=== PATIENT | female | born 2000 | race Two or more races ===

== ENCOUNTER 2019-09-03 20:11 | Emergency (ER) | payer MEDICAID ==
[~2019-09-03] VITALS: Ht 152.4 cm; Wt 67.1 kg
[2019-09-03 21:26] LABS: Urine Bacteria NONE SEEN /hpf (None Seen); Urine Blood Negative /uL (Negative); Urine Specific Gravity 1.016 (1.001-1.035); Urine WBC 9 /hpf (0 - 5)
[2019-09-03 23:56] LABS: Eosinophils # (auto) 0 uL; Lymphocytes # (auto) 1.5 uL; Mean Corpuscular Hgb Conc. 32.9 g/dL (32.0-36.0); Monocytes # (auto) 0.7 uL; Nucleated Red Blood Cells % 0.2 %; White Blood Cell 5.3 10^3/uL (4.4-10.8)
[2019-09-03 23:58] LABS: Basophils # (auto) 0.1 uL; Basophils % (auto) 2.3 % (0.0-2.0); Eosinophils % (auto) 0.5 % (0.0-7.0); Hematocrit 37.8 % (36.0-46.0); Hemoglobin 12.5 g/dL (12.2-16.2); Lymphocytes % (auto) 28.4 % (10.0-50.0); Mean Corpuscular Hemoglobin 24.6 pg (28.0-32.0); Mean Corpuscular Volume 74.8 fL (80.0-100.0); Monocytes % (auto) 13.1 % (0.0-12.0); Neutrophils # (auto) 2.9 uL; Neutrophils % (auto) 55.7 % (37.0-80.0); Platelet Count (auto) 192 10^3/uL (140-450); Red Blood Cells 5.06 10^6/uL (4.0-5.20); Red Cell Distribution Width 16.2 % (11.8-14.3)
[2019-09-04] MEDS ORDERED: SODIUM CHLORIDE 0.9% 1,000 ML IV ONE
[2019-09-04] MEDS ORDERED: ONDANSETRON HCL 4 MG/2 ML VIAL IV ONE
[2019-09-04] MEDS ORDERED: MORPHINE SULFATE 4 MG/ML SYR/VIAL IV ONE
[2019-09-04 00:15] LABS: Albumin 3.5 g/dL (3.4-5.0); BUN/Creatinine Ratio 10.3; Calcium 8.1 mg/dL (8.5-10.1); Magnesium 2.1 mg/dL (1.6-2.6); Potassium 3.3 mmol/L (3.5-5.1)
[2019-09-04 00:17] LABS: INR 1.02 (0.9-1.15)
[2019-09-04 00:18] LABS: Bilirubin, Total 0.3 mg/dL (0.2-1.0); Total Protein 8.6 g/dL (6.4-8.2)
[2019-09-04] MEDS ORDERED: IOHEXOL 300 MG/ML 100ML BOTTLE IJ ONE (01:43)
[2019-09-04 04:00] VITALS: BP 118/62
== END 2019-09-04 04:45 | disposition home or self-care (01) ==
LOC: ER 20:13
DX: N39.0 Urinary tract infection, site not specified (principal); R11.2 Nausea with vomiting, unspecified; F17.210 Nicotine dependence, cigarettes, uncomplicated
CPT/HCPCS: 36415; 74177; 80053; 81001; 81025; 82150; 83690; 83735; 85025; 85610; 85730; 96361; 96374; 96375; 99284; J2270; J2405; J7030; Q9967

== ENCOUNTER 2020-03-08 22:00 | Emergency (ER) | payer MEDICAID ==
[~2020-03-08] VITALS: Ht 144.8 cm; Wt 65.8 kg
[2020-03-08] MEDS ORDERED: HYDROcodone-ACET 5/325MG TAB PO ONE (23:15)
[2020-03-08 23:31] VITALS: BP 132/82
[2020-03-09] MEDS ORDERED: CLINDAMYCIN HCL 150 MG CAP PO ONE (00:15)
== END 2020-03-09 01:02 | disposition home or self-care (01) ==
LOC: ER 22:00
DX: K05.20 Aggressive periodontitis, unspecified (principal); F17.210 Nicotine dependence, cigarettes, uncomplicated
CPT/HCPCS: 70486

== ENCOUNTER 2020-04-02 05:39 | Emergency (ER) | payer MEDICAID ==
[~2020-04-02] VITALS: Ht 152.4 cm; Wt 65.8 kg
[2020-04-02] MEDS ORDERED: ACETAMINOPHEN/CODEINE#3 (300/30mg) TAB PO ONE (07:00)
[2020-04-02] MEDS ORDERED: IBUPROFEN 800 MG TAB PO ONE (07:00)
[2020-04-02 09:30] VITALS: BP 115/79
== END 2020-04-02 07:50 | disposition home or self-care (01) ==
LOC: ER 05:39
DX: K02.9 Dental caries, unspecified (principal); F17.210 Nicotine dependence, cigarettes, uncomplicated

== ENCOUNTER 2020-04-03 00:48 | Emergency (ER) | payer MEDICAID ==
[~2020-04-03] VITALS: Ht 152.4 cm; Wt 63.5 kg
[2020-04-03 04:19] VITALS: BP 144/94
[2020-04-03] MEDS ORDERED: cefTRIAXone SOD 1,000 MG VL IM ONE (04:30)
[2020-04-03] MEDS ORDERED: KETOROLAC TROMETH 60MG/2ML VIAL IM ONE (04:30)
== END 2020-04-03 05:27 | disposition home or self-care (01) ==
LOC: ER 00:48
DX: K04.7 Periapical abscess without sinus (principal)
CPT/HCPCS: 96372; 99284; J0696; J1885

== ENCOUNTER 2020-08-05 14:52 | Emergency (ER) | payer MEDICAID ==
[~2020-08-05] VITALS: Ht 152.4 cm; Wt 68.0 kg
[2020-08-05 20:17] VITALS: BP 140/86
== END 2020-08-05 20:22 | disposition home or self-care (01) ==
LOC: ER 14:54
DX: S91.201A Unspecified open wound of right great toe with damage to nail, initial encounter (principal); W22.8XXA Striking against or struck by other objects, initial encounter; Y93.89 Activity, other specified; Y92.89 Other specified places as the place of occurrence of the external cause; Y99.8 Other external cause status
CPT/HCPCS: 73630

== ENCOUNTER 2022-03-17 15:06 | Emergency (ER) | payer MEDICAID ==
[~2022-03-17] VITALS: Ht 154.9 cm; Wt 59.0 kg
[2022-03-17 15:06] VITALS: BP 145/85
[2022-03-17] MEDS ORDERED: AMOX250C3 PO (17:51)
== END 2022-03-17 18:17 | disposition left against medical advice (07) ==
LOC: ER 15:06
DX: K08.89 Other specified disorders of teeth and supporting structures (principal); F17.210 Nicotine dependence, cigarettes, uncomplicated

== ENCOUNTER 2022-04-28 13:39 | Emergency (ER) | payer MEDICAID ==
[~2022-04-28] VITALS: Ht 160 cm; Wt 59.0 kg
[~2022-04-28 13:39] MED LIST: AMOX250C3 PO
[2022-04-28 15:59] VITALS: BP 149/75
== END 2022-04-28 17:52 | disposition home or self-care (01) ==
LOC: ER 13:39
DX: S83.91XA Sprain of unspecified site of right knee, initial encounter (principal); F17.210 Nicotine dependence, cigarettes, uncomplicated; Z79.2 Long term (current) use of antibiotics; Y04.2XXA Assault by strike against or bumped into by another person, initial encounter; Y93.89 Activity, other specified; Y92.89 Other specified places as the place of occurrence of the external cause; Y99.8 Other external cause status
CPT/HCPCS: 29505; 73562

== ENCOUNTER 2022-08-14 07:47 | Inpatient (IN) | payer MEDICAID ==
[~2022-08-14] VITALS: Ht 152.4 cm; Wt 66.8 kg
[2022-08-14] MEDS ORDERED: SODIUM CHLORIDE 0.9% 500 ML IV ONE (08:15)
[2022-08-14 08:24] LABS: Urine Bacteria NONE SEEN /hpf (None Seen); Urine Blood 3+ /uL (Negative); Urine WBC 405 /hpf (0 - 5); Urine WBC Clumps PRESENT /hpf (None Seen)
[2022-08-14 08:38] LABS: Eosinophils # (auto) 0 10 ^3/uL (0-0.8); Mean Corpuscular Hemoglobin 25.1 pg (28.0-32.0); Nucleated Red Blood Cells % 0.1 %
[2022-08-14 08:40] LABS: Basophils # (auto) 0 10 ^3/uL (0-0.2); Basophils % (auto) 0.4 % (0.0-2.0); Eosinophils % (auto) 0.6 % (0.0-7.0); Hematocrit 40.5 % (36.0-46.0); Hemoglobin 13.4 g/dL (12.2-16.2); Lymphocytes # (auto) 0.6 10 ^3/uL (0.4-5.4); Lymphocytes % (auto) 10.4 % (10.0-50.0); Mean Corpuscular Hgb Conc. 33.1 g/dL (32.0-36.0); Mean Corpuscular Volume 75.7 fL (80.0-100.0); Monocytes # (auto) 0.5 10 ^3/uL (0-1.3); Monocytes % (auto) 8.5 % (0.0-12.0); Neutrophils # (auto) 4.9 10 ^3/uL (1.6-8.6); Neutrophils % (auto) 80.1 % (37.0-80.0); Red Blood Cells 5.36 10^6/uL (4.0-5.20); Red Cell Distribution Width 15.7 % (11.8-14.3); White Blood Cell 6.1 10^3/uL (4.4-10.8)
[2022-08-14] MEDS ORDERED: ACETAMINOPHEN 500 MG TAB PO ONE (08:45)
[2022-08-14 08:57] LABS: Albumin 4.1 g/dL (3.4-5.0); Calcium 9.1 mg/dL (8.5-10.1); Potassium 3.5 mmol/L (3.5-5.1)
[2022-08-14 09:00] LABS: BUN/Creatinine Ratio 4.8; Bilirubin, Total 0.4 mg/dL (0.2-1.0); Total Protein 9.3 g/dL (6.4-8.2)
[2022-08-14] MEDS ORDERED: cefTRIAXone 1GM/50ML D5W 50 ML IV ONE ×2 (09:53→10:00)
[2022-08-14] MEDS ORDERED: LEVO-28 PO (11:16)
[2022-08-14] MEDS ORDERED: CEPH-510 PO (11:16)
[2022-08-14] MEDS ORDERED: AZITHROMYCIN 500MG/ 250ML 250 ML IV ONE (11:30)
[2022-08-14] MEDS ORDERED: ONDANSETRON HCL 4 MG/2 ML VIAL IV PRN (13:15)
[2022-08-14] MEDS ORDERED: ACETAMINOPHEN 325 MG TAB PO PRN (13:15)
[2022-08-14] MEDS: SODIUM CHLORIDE 0.9% 1,000 ML IV SCH ×2 (16:19→23:01)
[2022-08-14] MEDS ORDERED: KETOROLAC TROMETH 30 MG/ML 1ML VIAL IV ONE (17:00)
[2022-08-14 20:00] VITALS: BP 112/60
[2022-08-14 22:00] VITALS: BP 112/60
[2022-08-14] MEDS: KETOROLAC TROMETH 30 MG/ML 1ML VIAL IV PRN (23:15)
[2022-08-15 05:00] VITALS: BP 113/58
[2022-08-15 05:08] LABS: Basophils # (auto) 0 10 ^3/uL (0-0.2); Basophils % (auto) 0.6 % (0.0-2.0); Eosinophils # (auto) 0 10 ^3/uL (0-0.8); Lymphocytes # (auto) 1.1 10 ^3/uL (0.4-5.4); Monocytes # (auto) 0.6 10 ^3/uL (0-1.3); Neutrophils # (auto) 2.3 10 ^3/uL (1.6-8.6); Red Cell Distribution Width 15.5 % (11.8-14.3)
[2022-08-15 05:11] LABS: Eosinophils % (auto) 0.6 % (0.0-7.0); Hematocrit 33.9 % (36.0-46.0); Hemoglobin 11.4 g/dL (12.2-16.2); Mean Corpuscular Hemoglobin 25.5 pg (28.0-32.0); Mean Corpuscular Hgb Conc. 33.7 g/dL (32.0-36.0); Mean Corpuscular Volume 75.7 fL (80.0-100.0); Monocytes % (auto) 14.6 % (0.0-12.0); Neutrophils % (auto) 56.2 % (37.0-80.0); Nucleated Red Blood Cells % 0.3 %; Red Blood Cells 4.48 10^6/uL (4.0-5.20)
[2022-08-15 05:24] LABS: Albumin 2.8 g/dL (3.4-5.0); Calcium 7.5 mg/dL (8.5-10.1); Potassium 3.3 mmol/L (3.5-5.1)
[2022-08-15 05:28] LABS: BUN/Creatinine Ratio 8.5
[2022-08-15 05:29] LABS: Bilirubin, Total 0.3 mg/dL (0.2-1.0); Total Protein 6.7 g/dL (6.4-8.2)
[2022-08-15] MEDS: KETOROLAC TROMETH 30 MG/ML 1ML VIAL IV PRN ×3 (06:37→22:36)
[2022-08-15] MEDS: SODIUM CHLORIDE 0.9% 1,000 ML IV SCH (06:38)
[2022-08-15 09:23] VITALS: BP 114/64
[2022-08-15] MEDS: cefTRIAXone 1GM/50ML D5W 50 ML IV SCH (09:32)
[2022-08-15] MEDS ORDERED: POTASSIUM EFFERVESENT TAB 25 MEQ PO ONE (10:15)
[2022-08-15] MEDS ORDERED: ALBUTEROL SULF 2.5 MG/0.5ML(0.5%) NEB SOLN NEB PRN (10:45)
[2022-08-15] MEDS ORDERED: guaiFENesin-DM 100/10mg/5ml SYR PO PRN (10:45)
[2022-08-15] MEDS ORDERED: IPRATROPIUM BROM 0.5 MG/2.5ML INH SOL NEB PRN (10:45)
[2022-08-15] MEDS: ENOXAPARIN SOD 40 MG/0.4 ML SYRINGE SC SCH (11:34)
[2022-08-15] MEDS: AZITHROMYCIN 500MG/ 250ML 250 ML IV SCH (11:35)
[2022-08-15] MEDS ORDERED: OSEL75CA5 PO (12:37)
[2022-08-15 13:12] VITALS: BP 114/67
[2022-08-15 16:31] VITALS: BP 114/67
[2022-08-15 17:00] VITALS: BP 126/69
[2022-08-15 17:42] LABS: Albumin 3.5 g/dL (3.4-5.0); BUN/Creatinine Ratio 7.1; Calcium 8.1 mg/dL (8.5-10.1); Potassium 3.5 mmol/L (3.5-5.1)
[2022-08-15 17:45] LABS: Bilirubin, Total 0.2 mg/dL (0.2-1.0); Total Protein 7.7 g/dL (6.4-8.2)
[2022-08-15 22:00] VITALS: BP 110/61
[2022-08-15] MEDS: OSELTAMIVIR 75 MG CAP PO SCH (22:26)
[2022-08-16 05:00] VITALS: BP 109/49
[2022-08-16 09:00] VITALS: BP 118/69
[2022-08-16] MEDS: OSELTAMIVIR 75 MG CAP PO SCH (10:15)
[2022-08-16] MEDS: cefTRIAXone 1GM/50ML D5W 50 ML IV SCH (10:15)
[2022-08-16] MEDS: ENOXAPARIN SOD 40 MG/0.4 ML SYRINGE SC SCH (10:15)
[2022-08-16] MEDS: KETOROLAC TROMETH 30 MG/ML 1ML VIAL IV PRN (10:15)
[2022-08-16] MEDS: AZITHROMYCIN 500MG/ 250ML 250 ML IV SCH (11:21)
[2022-08-16 13:00] VITALS: BP 112/67
== END 2022-08-16 15:50 | disposition home or self-care (01) | DRG 139 ==
LOC: ER 07:47 → OVERFLOW 13:06 → EAST 18:15
PROVIDERS: ADMIT Nurse Practitioner Family; ATTEND Nurse Practitioner Acute Care
DX: J10.08 Influenza due to other identified influenza virus with other specified pneumonia (principal); E44.0 Moderate protein-calorie malnutrition; E83.51 Hypocalcemia; D50.9 Iron deficiency anemia, unspecified; D72.819 Decreased white blood cell count, unspecified; F17.290 Nicotine dependence, other tobacco product, uncomplicated; E87.6 Hypokalemia; Z20.822 Contact with and (suspected) exposure to COVID-19; J15.9 Unspecified bacterial pneumonia; Z68.28 Body mass index [BMI] 28.0-28.9, adult
CPT/HCPCS: 36415; 71045; 74018; 80053; 81001; 81025; 85025; 87426; 87804; 94640; 96361; 96365; 96367; G0378; J0696; J1885

== ENCOUNTER 2023-07-21 09:06 | Emergency (ER) | payer MEDICAID ==
[~2023-07-21] VITALS: Ht 152.4 cm; Wt 62.5 kg
[~2023-07-21 09:06] MED LIST changes: +CEPH-510 PO; +LEVO500T91 PO; +OSEL75CA5 PO
[2023-07-21 09:37] VITALS: BP 132/77; PULSE 79; RESP 18; TEMP 97.1; O2SAT 98
[2023-07-21 09:48] LABS: Urine Bacteria NONE SEEN /hpf (None Seen); Urine Blood Negative /uL (Negative); Urine Clarity Clear (Clear); Urine Color Yellow (Yellow); Urine Mucus FEW (None Seen); Urine Protein, UAD Negative (Negative); Urine Specific Gravity 1.022 (1.001-1.035); Urine Urobilinogen Normal (Negative); Urine WBC 1 /hpf (0 - 5)
[2023-07-21 09:55] LABS: Basophils # (auto) 0.1 10 ^3/uL (0-0.2); Basophils % (auto) 1.1 % (0.0-2.0); Hemoglobin 13.1 g/dL (12.2-16.2); Lymphocytes # (auto) 2.2 10 ^3/uL (0.4-5.4); Mean Corpuscular Hemoglobin 24.8 pg (28.0-32.0); Mean Corpuscular Hgb Conc. 32.6 g/dL (32.0-36.0); Monocytes # (auto) 0.4 10 ^3/uL (0-1.3); Neutrophils # (auto) 4.5 10 ^3/uL (1.6-8.6); Red Blood Cells 5.28 10^6/uL (4.0-5.20); White Blood Cell 7.5 10^3/uL (4.4-10.8)
[2023-07-21 09:56] LABS: Eosinophils # (auto) 0.2 10 ^3/uL (0-0.8); Eosinophils % (auto) 3.3 % (0.0-7.0); Hematocrit 40.1 % (36.0-46.0); Lymphocytes % (auto) 29.5 % (10.0-50.0); Monocytes % (auto) 5.5 % (0.0-12.0); Neutrophils % (auto) 60.6 % (37.0-80.0); Red Cell Distribution Width 16.7 % (11.8-14.3)
[2023-07-21 10:22] LABS: Chloride 106 mmol/L (98-107); Potassium 3.6 mmol/L (3.5-5.1); Sodium 137 mmol/L (136-145)
[2023-07-21 10:23] LABS: Anion Gap 4 (5-15); Calcium 9.4 mg/dL (8.5-10.1); Carbon Dioxide 27 mmol/L (20-30)
[2023-07-21 10:28] LABS: BUN/Creatinine Ratio 7.8 (10.0-20.0); Blood Urea Nitrogen 6 mg/dL (9-23); Glucose 111 mg/dL (74-106)
[2023-07-21] MEDS ORDERED: IBUP-1456 PO (11:30)
== END 2023-07-21 11:39 | disposition home or self-care (01) ==
LOC: ER 09:06
DX: S39.012A Strain of muscle, fascia and tendon of lower back, initial encounter (principal); K57.30 Diverticulosis of large intestine without perforation or abscess without bleeding; K59.00 Constipation, unspecified; Z98.890 Other specified postprocedural states; Z79.1 Long term (current) use of non-steroidal anti-inflammatories (NSAID); Z79.899 Other long term (current) drug therapy; X58.XXXA Exposure to other specified factors, initial encounter; Y93.89 Activity, other specified; Y92.89 Other specified places as the place of occurrence of the external cause; Y99.8 Other external cause status
CPT/HCPCS: 36415; 74176; 80048; 81001; 81025; 85025

== ENCOUNTER 2023-10-25 21:01 | Emergency (ER) | payer MEDICAID ==
[~2023-10-25] VITALS: Ht 157.5 cm; Wt 61.8 kg
[~2023-10-25 21:01] MED LIST changes: +IBUP-1456 PO
[2023-10-26 00:25] VITALS: BP 115/66; PULSE 77; RESP 17; TEMP 98; O2SAT 99
[2023-10-26] MEDS ORDERED: TETRACAINE HCL 0.5% OPTH(EYE) SOLN 4ML LEFTEYE ONE (01:30)
[2023-10-26] MEDS ORDERED: FLUORESCEIN SOD OPTH TEST STRIP LEFTEYE ONE (01:30)
[2023-10-26] MEDS ORDERED: ERY05OO OP (02:58)
== END 2023-10-26 04:34 | disposition home or self-care (01) ==
LOC: ER 21:01
DX: S05.02XA Injury of conjunctiva and corneal abrasion without foreign body, left eye, initial encounter (principal); Z79.2 Long term (current) use of antibiotics; Z79.1 Long term (current) use of non-steroidal anti-inflammatories (NSAID); Z79.899 Other long term (current) drug therapy; X58.XXXA Exposure to other specified factors, initial encounter; Y93.89 Activity, other specified; Y92.89 Other specified places as the place of occurrence of the external cause; Y99.8 Other external cause status

== ENCOUNTER 2024-03-24 23:31 | Emergency (ER) | payer MEDICAID ==
[~2024-03-24] VITALS: Ht 157.5 cm; Wt 73.0 kg
[~2024-03-24 23:31] MED LIST changes: +ERY05OO OP
[2024-03-25 00:15] VITALS: BP 118/62; PULSE 87; RESP 20; TEMP 98.5
[2024-03-25] MEDS: IBUPROFEN 800 MG TAB PO ONE (03:28)
[2024-03-25 03:31] LABS: Amphetamine Screen, Urine Neg (NEGATIVE); Barbiturate Scree,Urine Neg (NEGATIVE); Benzodiazephine Screen, Urine Neg (NEGATIVE); Cannabinoid Screen, Urine Pos (NEGATIVE); Cocaine Screen, Urine Pos (NEGATIVE); Opiate Scree,Urine Neg (NEGATIVE); Phencyclidine Screen, Urine Neg (NEGATIVE)
[2024-03-25 03:34] VITALS: O2SAT 97
[2024-03-25 03:40] LABS: Urine Bacteria FEW /hpf (None Seen); Urine Blood Negative /uL (Negative); Urine Clarity Clear (Clear); Urine Color Light-Yellow (Yellow); Urine Protein, UAD Negative (Negative); Urine Specific Gravity 1.014 (1.001-1.035); Urine Urobilinogen Normal (Negative); Urine WBC <1 /hpf (0 - 5)
[2024-03-25 03:45] LABS: Basophils # (auto) 0.1 10 ^3/uL (0-0.2); Eosinophils # (auto) 0.6 10 ^3/uL (0-0.8); Lymphocytes # (auto) 2.9 10 ^3/uL (0.4-5.4); Mean Corpuscular Hemoglobin 26.9 pg (28.0-32.0); Monocytes # (auto) 0.7 10 ^3/uL (0-1.3)
[2024-03-25 03:48] LABS: Basophils % (auto) 0.9 % (0.0-2.0); Eosinophils % (auto) 4.7 % (0.0-7.0); Lymphocytes % (auto) 23.1 % (10.0-50.0); Mean Corpuscular Hgb Conc. 33.3 g/dL (32.0-36.0); Monocytes % (auto) 5.9 % (0.0-12.0); Neutrophils # (auto) 8.1 10 ^3/uL (1.6-8.6); Neutrophils % (auto) 65.4 % (37.0-80.0); Red Blood Cells 4.44 10^6/uL (4.0-5.20); Red Cell Distribution Width 19.5 % (11.8-14.3); White Blood Cell 12.4 10^3/uL (4.4-10.8)
[2024-03-25 03:54] LABS: Alanine Aminotransferase 14 U/L (7-40); Albumin 4.2 g/dL (3.2-4.8); Alkaline Phosphatase 67 U/L (46-116); Anion Gap 5 (5-15); Aspartate Aminotransferase 10 U/L (13-40); Blood Urea Nitrogen 6 mg/dL (9-23); Calcium 8.9 mg/dL (8.5-10.1); Carbon Dioxide 28 mmol/L (20-30); Chloride 107 mmol/L (98-107); Glucose 100 mg/dL (74-106); Magnesium 1.8 mg/dL (1.6-2.6); Sodium 140 mmol/L (136-145)
[2024-03-25 03:55] LABS: Bilirubin, Total 0.2 mg/dL (0.2-1.0); Total Protein 7.3 g/dL (5.7-8.2)
== END 2024-03-25 04:55 | disposition home or self-care (01) ==
LOC: ER 23:31
DX: G62.9 Polyneuropathy, unspecified (principal); M54.50 Low back pain, unspecified; Z79.899 Other long term (current) drug therapy
CPT/HCPCS: 36415; 80053; 80307; 81001; 83735; 85025

== ENCOUNTER 2024-09-06 01:16 | Emergency (ER) | payer MEDICAID ==
[~2024-09-06] VITALS: Ht 154.9 cm; Wt 66.0 kg
[2024-09-06 01:25] VITALS: BP 146/91; PULSE 101
[2024-09-06 01:54] VITALS: RESP 18; O2SAT 94
[2024-09-06] MEDS: ALBUTEROL SULF 2.5 MG/0.5ML(0.5%) NEB SOLN NEB ONE (01:54)
[2024-09-06] MEDS: IPRATROPIUM BROM 0.5 MG/2.5ML INH SOL NEB ONE (01:54)
[2024-09-06] MEDS ORDERED: PRED20TA2 PO (02:44)
[2024-09-06] MEDS ORDERED: MONT-8 PO (02:44)
[2024-09-06] MEDS ORDERED: PROM1SOL4 PO (02:44)
--- NOTE | 2024-09-06 02:45 | ED.PDOC ---
SOB-HPI HPI Comments 24-year-old female complaining of cough and shortness of breath for with three days. Intermittent chills. Intermittent nausea. No fever. No chest pain. States she has been feeling some intermittent wheezing. No past history of asthma. States she was had pneumonia in the past. No new foods no new medications. Nothing makes it better, makes it worse. Chief Complaint: Shortness of Breath Time Seen by MD: 01:24 Primary Care Provider: OUT OF AREA Reviewed notes: Nurses Notes Information Source: Patient Mode of Arrival: Ambulatory Severity: Mild Past Medical History PAST MEDICAL HISTORY: UTI'S Surgical History: , Denies all surgeries CAR FERRIER History: No Pertinent CAR FERRIER History Family History Family History: Reviewed,noncontributory to illness Social History Smoker: Non-Smoker Alcohol: Denies ETOH Use Drugs: Denies Drug Use Lives In: Home Constitutional: reports: chills; denies: diaphoresis, fatigue, fever, malaise, sweats, weakness, others EENTM: denies: blurred vision, double vision, ear bleeding, ear discharge, ear drainage, ear pain, ear ringing, eye pain, eye redness, hearing loss, mouth pain, mouth swelling, nasal discharge, nose bleeding, nose congestion, nose pain, photophobia, tearing, throat pain, throat swelling, voice changes, others Respiratory: reports: cough, SOB at rest, wheezing; denies: hemoptysis, orthop jane, shortness of breath, SOB with excertion, stridor, others Cardiovascular: denies: chest pain, dizzy spells, diaphoresis, Dyspnea on exertion, edema, irregular heart beat, left arm pain, lightheadedness, palpitations, PND, syncope, others Gastrointestinal: denies: abdomen distended, abdominal pain, blood streaked bowels, constipated, diarrhea, dysphagia, difficulty swallowing, hematemesis, melena, nausea, poor appetite, poor fluid intake, rectal bleeding, rectal pain, vomiting, others Genitourinary: denies: abnormal vagina bleeding, burning, dyspareunia, dysuria, flank pain, frequency, hematuria, incontinence, pain, , vagina discharge, urgency, others Neurological: denies: dizziness, fainting, headache, left sided numbness, left sided weakness, numbness, paresthesia, pre-existing deficit, right sided numbness, right sided weakness, seizure, speech problems, tingling, tremors, weakness, others Musculoskeletal: denies: back pain, gout, joint pain, joint swelling, muscle pain, muscle stiffness, neck pain, others Integumetry: denies: bruises, change in color, change in hair/nails, dryness, laceration, lesions, lumps, rash, wounds, others Allergic/Immunocompromised: denies: Difficulty Healing, Frequent Infections, Hives, Itching, others Hematologic/Lymphatic: denies: anemia, blood clots, easy bleeding, easy bruising, swollen glands, others Physical Exam General Appearance: No Apparent Distress, Normal HEENT: Normal ENT Inspection, Pharynx Normal, TMs Normal Neck: Full Range of Motion, Non-Tender, Normal, Normal Inspection Respiratory: Chest Non-Tender, No Accessory Muscle Use, No Respiratory Distress, Normal Breath Sounds, Wheezing (Scattered wheezing noted) Cardiovascular: No Edema, No JVD, No Murmur, No Gallop, Normal Peripheral Pulses, Regular Rate/Rhythm Breast Exam: Deferred Gastrointestinal: No Organomegaly, Non Tender, No Pulsatile Mass, Normal Bowel Sounds, Soft Genitalia: Deferred Pelvic: Deferred Rectal: Deferred Extremities: No calf tenderness, Normal capillary refill, Normal inspection, Normal range of motion, Non-tender, No pedal edema Musculoskeletal : Apperance: Normal Neurologic: Alert, dresser tender II-XII nml as Tested, No Motor Deficits, Normal Affect, Normal Mood, No Sensory Deficits Cerebellar Function: Normal Reflexes: Normal Skin: Dry, Normal Color, Warm Lymphatic: No Adenopathy Was a procedure done? Was a procedure done?: No Differential Dx Differential Diagnosis: Asthma, Bronchitis X-Ray, Labs, Meds, VS Vital Signs Date Time Temp Pulse Resp B/P (MAP) Pulse Ox O2 Delivery O2 Flow Rate FiO2 09/06/24 01:25 97.9 101 20 146/91 (109) 94 Current Medications Medications (Trade) Dose Ordered Sig/Kimberley Route Start Time Stop Time Status Last Admin Albuterol (Ventolin Medneb) 2.5 mg ONCE ONCE NEB 09/06/24 01:45 09/06/24 01:46 DC 09/06/24 01:54 Ipratropium [place] (Atrovent Medneb) 0.5 mg ONCE ONCE NEB 09/06/24 01:45 09/06/24 01:46 DC 09/06/24 01:54 X-Ray, Labs, Meds, VS Comment Imaging: X-rays and CT scans were reviewed and interpreted by this provider, imaging shows no fractures and no pathological disease. Pending radiology review. Laboratory: Labs reviewed and interpreted by this provider. No significant abnormalities noted. Patient has prior medical visits reviewed. Med reconciliation performed Vital signs reviewed Time of 1ST Reevaluation: 02:44 Reevaluation 1ST: Improved Patient Education/Counseling: Diagnosis, Treatment, Need For Follow Up (Patient advised to follow-up in the emergency room in the next 24 to 48 hours if symptoms do not improve. Advised follow-up with PCP in the next 3 to 5 days. Patient verbalized understanding. ) Family Education/Counseling: Diagnosis Departure 1 Departure Time of Disposition: 02:42 Impression: Primary Impression: Bronchitis Disposition: 01 HOME / SELF CARE / HOMELESS Condition: Fair e-Prescriptions Montelukast Sodium (MONTELUKAST SODIUM) 10 Mg Tab 1 TAB PO DAILY, #30 TAB 5 Refills Prov: MIGNON BOCANEGRA 09/06/24 Promethazine-Dm (Promethazine Dm 6.25-15 mg/5Ml) 1 Nitza Nitza 5 ML PO TID PRN, #240 ML Prov: MIGNON BOCANEGRA 09/06/24 Prednisone (Prednisone) 20 Mg Tab 20 MG PO DAILY for 5 Days, #5 MG Prov: MIGNON BOCANEGRA 09/06/24 Discharged With: Self Critical Care Note Critical Care Time?: No Stability Stability form required: No Heart Score Heart Score: Heart Score Response (Comments) Value History N/A 0 EKG N/A 0 Age N/A 0 Risk Factors N/A 0 Troponin N/A 0 Total 0 MIGNON BOCANEGRA Sep 06, 2024 02:45
--- NOTE | 2024-09-06 03:15 | DVH ---
Examination: CXRP CLINICAL INDICATION: SOB COMPARISON: None. Technique: Frontal radiograph of the chest was obtained. Findings: Lungs are clear and well expanded with no pulmonary infiltrate or pleural effusion. There is no pneumothorax. The cardiomediastinal silhouette is within normal limits. No acute osseous abnormality is seen. Impression: No acute cardiopulmonary disease is seen. Electronically Signed 09/06/2024 03:07 Zoey John
== END 2024-09-06 05:35 | disposition left against medical advice (07) ==
LOC: ER 01:16
DX: J40 Bronchitis, not specified as acute or chronic (principal); Z98.890 Other specified postprocedural states
CPT/HCPCS: 71045; 94640

== ENCOUNTER 2024-11-29 22:13 | Emergency (ER) | payer MEDICAID ==
[~2024-11-29] VITALS: Ht 157.5 cm; Wt 69.0 kg
[~2024-11-29 22:13] MED LIST changes: +MONT-8 PO; +PRED20TA2 PO; +PROM1SOL4 PO
[2024-11-29] MEDS: ACETAMINOPHEN 325 MG TAB PO ONE (22:38)
[2024-11-30] MEDS ORDERED: ACET500T58 PO (00:38)
[2024-11-30] MEDS ORDERED: AMOX875T4 PO (00:38)
--- NOTE | 2024-11-30 00:38 | ED.PDOC ---
Eye-HPI HPI Comments 24-YEAR-OLD FEMALE PRESENTS TO ER WITH COMPLAINTS OF SORE THROAT X1 DAY. PATIENT REPORTS SHE HAS BEEN EXPERIENCING 10/10 SORE THROAT PAIN WITH RADIATION TOWARDS RIGHT EAR X1 DAY. DENIES USE OF MEDICATIONS FOR CURRENT SYMPTOMS. PATIENT PRESENTS TO ER AMBULATORY ON ARRIVAL, WITH STEADY GAIT, IN NO DISTRESS. DENIES COUGH, SHORTNESS OF BREATH, DROOLING, VOICE CHANGES, N/V, KNOWN EXPOSURE TO SICK CONTACTS OR ANY FURTHER SYMPTOMS/COMPLAINTS Chief Complaint: Sore Throat Time Seen by MD: 22:33 Primary Care Provider: OUT OF AREA Reviewed Notes: Nurses Notes, Medications, Allergies Allergies: Coded Allergies: NO KNOWN ALLERGIES (Unverified , 05/12/19) Home Meds Active Scripts Amoxicillin & Pot Clavulanate (Amoxicillin/Potassium Cla) 875 Mg Tab, 1 TAB PO BID for 7 Days, #14 TAB 0 Refills Prov:ROSE PAULINO 11/30/24 Acetaminophen (Acetaminophen) 500 Mg Tab, 500 MG PO Q4HPRN, #30 TAB 0 Refills Prov:ROSE PAULINO 11/30/24 Montelukast Sodium (MONTELUKAST SODIUM) 10 Mg Tab, 1 TAB PO DAILY, #30 TAB 5 Refills Prov:MIGNON BOCANEGRA [facility] 09/06/24 Promethazine-Dm (Promethazine Dm 6.25-15 mg/5Ml) 1 Nitza Nitza, 5 ML PO TID PRN, #240 ML Prov:MIGNON BOCANEGRAP 09/06/24 Prednisone (Prednisone) 20 Mg Tab, 20 MG PO DAILY for 5 Days, #5 MG Prov:MIGNON BOCANEGRA [facility] 09/06/24 Erythromycin (Erythromycin) 5 Mg/Gm Oin, 1 MG OP 6XD for 10 Days, #1 OIN Prov:RUKHSANA LEONP 10/26/23 Ibuprofen (Ibuprofen) 800 Mg Tab, 1 TAB PO TID, #30 TAB Prov:IAN VERMA 07/21/23 Oseltamivir Phosphate (Tamiflu) 75 Mg Cap, 1 CAP PO BID for 5 Days, #10 CAP Prov:RAJAN PAYTON NP 08/15/22 Levofloxacin Hemihydrate (LEVOFLOXACIN) 500 Mg Tab, 500 MG PO DAILY for 10 Days, #10 MG Prov:FAY BARR MD 08/14/22 Cephalexin ( Keflex 500) 500 Mg Cap, 1 CAP PO QID for 7 Days, #28 CAP Prov:FAY BARR MD 08/14/22 Amoxicillin Trihydrate (Amoxicillin) 250 Mg Cap, 250 MG PO Q8HR for 7 Days, #21 MG Prov:SWETHA MAGALLON MD 03/17/22 Information Source: Patient Mode of Arrival: Ambulatory Past Medical History PAST MEDICAL HISTORY: UTI'S Surgical History: DRY BOSS History: No Pertinent DRY BOSS History Family History Family History: Unknown Social History Smoker: Non-Smoker Alcohol: Denies ETOH Use Drugs: Marijuana Lives In: Home Constitutional: denies: chills, diaphoresis, fatigue, fever, malaise, sweats, weakness, others EENTM: reports: others ( STATED IN HPI) Respiratory: denies: cough, hemoptysis, orthopnea, SOB at rest, shortness of breath, SOB with excertion, stridor, wheezing, others Cardiovascular: denies: chest pain, dizzy spells, diaphoresis, Dyspnea on exertion, edema, irregular heart beat, left arm pain, lightheadedness, palpitations, PND, syncope, others Gastrointestinal: denies: abdomen distended, abdominal pain, blood streaked bowels, constipated, diarrhea, dysphagia, difficulty swallowing, hematemesis, melena, nausea, poor appetite, poor fluid intake, rectal bleeding, rectal pain, vomiting, others Genitourinary: denies: abnormal vagina bleeding, burning, dyspareunia, dysuria, flank pain, frequency, hematuria, incontinence, pain, , vagina discharge, urgency, others Neurological: denies: dizziness, fainting, headache, left sided numbness, left sided weakness, numbness, paresthesia, pre-existing deficit, right sided numbness, right sided weakness, seizure, speech problems, tingling, tremors, weakness, others Musculoskeletal: denies: back pain, gout, joint pain, joint swelling, muscle pain, muscle stiffness, neck pain, others Integumetry: denies: bruises, change in color, change in hair/nails, dryness, laceration, lesions, lumps, rash, wounds, others Allergic/Immunocompromised: denies: Difficulty Healing, Frequent Infections, Hives, Itching, others Hematologic/Lymphatic: denies: anemia, blood clots, easy bleeding, easy bruising, swollen glands, others Endocrine: denies: excessive hunger, excessive sweating, excessive thirst, excessive urination, flushing, intolerance to cold, intolerance to heat, unexplained weight gain, unexplained weight loss, others Psychiatric: denies: anxiety, bipolar disorder, depression, hopeless, panic disorder, schizophrenia, sleepless, suicidal, others Physical Exam General Appearance: No Apparent Distress HEENT: PERRL/EOMI, Pharyngeal Erythema (MILD TONSILLAR SWELLING/ERYTHEMA NOTED BILATERALLY WITHOUT EXUDATES. UVULA-NORMAL), TMs Normal Neck: Full Range of Motion, Non-Tender, Normal Respiratory: Chest Non-Tender, Lungs Clear, No Accessory Muscle Use, No Respiratory Distress, Normal Breath Sounds Cardiovascular: No Murmur, No Gallop, Regular Rate/Rhythm Breast Exam: Deferred Gastrointestinal: NOT DONE Genitalia: Deferred Pelvic: Deferred Rectal: Deferred Extremities: Normal capillary refill, Normal range of motion Neurologic: Alert, No Motor Deficits, Normal Affect, Normal Mood, No Sensory Deficits Cerebellar Function: Normal Reflexes: Normal Skin: Dry, Normal Color, Warm Lymphatic: No Adenopathy Was a procedure done? Was a procedure done?: No Sedation Sedation?: No EENT DIFF Eye: N/A Sore Throat: Epiglottitis, Mononeucleosis, Peritonsillar Abscess X-Ray, Labs, Meds, VS Vital Signs Date Time Temp Pulse Resp B/P (MAP) Pulse Ox O2 Delivery O2 Flow Rate FiO2 11/29/24 22:38 98.7 11/29/24 22:28 98.7 94 12 143/92 (109) 95 Current Medications Medications (Trade) Dose Ordered Sig/Kimberley Route Start Time Stop Time Status Last Admin Acetaminophen (Tylenol Tablet) 650 mg ONCE ONCE PO 11/29/24 22:30 11/29/24 22:31 DC 11/29/24 22:38 TYLENOL 650 MG P.O. ORDERED ROCEPHIN 1 G IM ORDERED-PATIENT REFUSED SOLU-MEDROL 125 MG IM ORDERED -PATIENT REFUSED PATIENT TOLERATING P.O. INTAKE WELL AND IN NO DISTRESS DURING ER VISIT/PRIOR TO DISCHARGE ADVISED TO DRINK PLENTY OF FLUIDS ADVISED TO FOLLOW UP WITH PCP IN 1-2 DAYS PATIENT VERBALIZED UNDERSTANDING AND AGREEABLE WITH CURRENT PLAN OF CARE ADVISED TO RETURN TO ER IMMEDIATELY IF SYMPTOMS WORSEN Time of 1ST Reevaluation: 00:12 Reevaluation 1ST: N/A Patient Education/Counseling: Diagnosis, Treatment, Prognosis, Need For Follow Up Family Education/Counseling: No Family Present Departure 1 Departure Time of Disposition: 00:34 Impression: Primary Impression: Acute tonsillitis Qualified Codes: J03.90 - Acute tonsillitis, unspecified Disposition: HOME / SELF CARE / HOMELESS Condition: Stable e-Prescriptions Amoxicillin & Pot Clavulanate (Amoxicillin/Potassium Cla) 875 Mg Tab 1 TAB PO BID for 7 Days, #14 TAB 0 Refills Prov: ROSE PAULINO 11/30/24 Acetaminophen (Acetaminophen) 500 Mg Tab 500 MG PO Q4HPRN, #30 TAB 0 Refills Prov: ROSE PAULINO 11/30/24 Discharged With: Self Critical Care Note Critical Care Time?: No Stability Stability form required: No Heart Score Heart Score: Heart Score Response (Comments) Value History N/A 0 EKG N/A 0 Age N/A 0 Risk Factors N/A 0 Troponin N/A 0 Total 0 ROSE PAULINO Nov 30, 2024 00:38
[2024-11-30] MEDS: methylPREDNISolone SOD SUCC 125 MG/2 ML VL IM ONE (00:50)
[2024-11-30] MEDS: cefTRIAXone SOD 1,000 MG VL IM ONE (00:50)
[2024-11-30 01:07] VITALS: BP 143/92; PULSE 94; RESP 12; TEMP 98.7; O2SAT 95
== END 2024-11-30 01:09 | disposition home or self-care (01) ==
LOC: ER 22:13
DX: J03.90 Acute tonsillitis, unspecified (principal); Z79.1 Long term (current) use of non-steroidal anti-inflammatories (NSAID); Z79.52 Long term (current) use of systemic steroids; Z79.899 Other long term (current) drug therapy